=== PATIENT | male | born 1970 | race Two or more races ===

== ENCOUNTER 2022-10-21 15:59 | Emergency (ER) | payer OTHER ==
[~2022-10-21] VITALS: Ht 180.3 cm; Wt 111.1 kg
[2022-10-21 16:31] LABS: HEMATOCRIT 40.3 % (36.7-47.1); MEAN CORPUSCULAR HEMOGLOBIN 28.9 uug (23.8-33.4); MEAN CORPUSCULAR VOLUME 86.5 fL (73.0-96.2); PLATELET COUNT (AUTO) 225 K/uL (152-348)
--- NOTE | 2022-10-21 16:43 | NUR ---
Pt seen by . EKG performed. Pt being monitored. Safety measures in place. Will continue to monitor.
[2022-10-21 17:15] LABS: CARBON DIOXIDE 28 mmol/L (21-32); CHLORIDE 106 mmol/L (98-107); CREATININE 0.8 mg/dL (0.6-1.3); GLUCOSE 88 mg/dL (74-106); POTASSIUM 4.2 mmol/L (3.5-5.1); UREA NITROGEN, BLOOD 19 mg/dL (7-18)
[2022-10-21] MEDS ORDERED: ACETAMINOPHEN 325 MG TABLET PO ONE (17:15)
[2022-10-21] MEDS ORDERED: FAMOTIDINE. 20 MG/2 ML VIAL IV ONE ×2 (17:15)
[2022-10-21] MEDS ORDERED: MAG HYDROX/AL HYDROX/SIMETH 30 ML LIQUID UDC PO ONE (17:15)
[2022-10-21] MEDS ORDERED: ACETAMINOPHEN 325 MG TABLET ONE (17:15)
[2022-10-21] MEDS ORDERED: MAG HYDROX/AL HYDROX/SIMETH 30 ML LIQUID UDC ONE (17:23)
[2022-10-21 17:28] LABS: ALANINE AMINOTRANSFERASE 30 U/L (16-63); ALKALINE PHOSPHATASE 92 U/L (50-136); ASPARTATE AMINOTRANSFERASE 14 U/L (15-37); BILIRUBIN,DIRECT 0.2 mg/dL (0.0-0.2); TOTAL PROTEIN, SERUM 7.1 g/dL (6.4-8.2)
--- NOTE | 2022-10-21 18:22 | NUR ---
Pt currently in stable condition. Safety measures in place. Will continue to monitor.
[2022-10-21] MEDS ORDERED: ASPIRIN 81 MG TAB.CHEW PO ONE (18:45)
[2022-10-21] MEDS ORDERED: ASPIRIN 81 MG TAB.CHEW ONE (18:51)
--- NOTE | 2022-10-21 19:10 | NUR ---
Received report from GRACIA Parra.
--- NOTE | 2022-10-21 19:55 | NUR ---
Patient a/o x 4. NAD noted. Ambulatory with a steady gait. All belongings with patient. Patient discharged to home in stable condition. Written and verbal after care instructions given. Patient verbalizes understanding of instructions. Stressed follow up or return to ER for worsening s/s.
[2022-10-21 19:57] VITALS: BP 127/68
== END 2022-10-21 19:57 | disposition home or self-care (01) ==
LOC: ER 16:02
DX: R07.89 Other chest pain (principal)
CPT/HCPCS: 99285; 96374; 71045; 80076; 80048; 83880; 85025; 84484 ×2; 36415; 93005; J3490; A4663

== ENCOUNTER 2022-11-22 08:44 | Emergency (ER) | payer OTHER ==
[~2022-11-22] VITALS: Ht 180.3 cm; Wt 111.1 kg
[2022-11-22] MEDS ORDERED: LIDOCAINE VISCUS 2% 15 ML UDC MM ONE (09:00)
[2022-11-22] MEDS ORDERED: FAMOTIDINE. 20 MG/2 ML VIAL IV ONE ×2 (09:00→09:11)
[2022-11-22] MEDS ORDERED: MAG HYDROX/AL HYDROX/SIMETH 30 ML LIQUID UDC PO ONE (09:00)
[2022-11-22] MEDS ORDERED: IV NORMAL SALINE 1000 ML BAG IV ONE (09:00)
[2022-11-22] MEDS ORDERED: ONDA4TAB5 PO (09:04)
[2022-11-22] MEDS ORDERED: FAMO10TA41 PO (09:04)
[2022-11-22] MEDS ORDERED: LIDOCAINE VISCUS 2% 15 ML UDC ONE (09:10)
[2022-11-22] MEDS ORDERED: MAG HYDROX/AL HYDROX/SIMETH 30 ML LIQUID UDC ONE (09:12)
--- NOTE | 2022-11-22 09:15 | NUR ---
Pt seen by MD for Bedside Eval. Safety measures in place. Will continue to monitor.
--- NOTE | 2022-11-22 09:22 | NUR ---
Pt denied IV. Safety measures in place. Will continue to monitor.
[2022-11-22 09:33] LABS: MEAN CORPUSCULAR HEMOGLOBIN 29.1 uug (23.8-33.4); PLATELET COUNT (AUTO) 182 K/uL (152-348)
[2022-11-22 09:54] LABS: BILIRUBIN,DIRECT 0.2 mg/dL (0.0-0.2); BILIRUBIN,TOTAL 1.3 mg/dL (0.2-1.0); POTASSIUM 4.2 mmol/L (3.5-5.1); TOTAL PROTEIN, SERUM 6.7 g/dL (6.4-8.2)
--- NOTE | 2022-11-22 10:00 | NUR ---
UA sent to lab.
[2022-11-22] MEDS ORDERED: PANT20TA2 PO (10:02)
[2022-11-22] MEDS ORDERED: SIME80TA15 PO (10:02)
[2022-11-22 11:07] LABS: *BILIRUBIN,URIN NEGATIVE (NEGATIVE); *CLARITY,URINE CLEAR (CLEAR); *COLOR,URINE YELLOW (YELLOW); *KETONES,URINE NEGATIVE (NEGATIVE); *UROBILINOGEN,URINE 0.2 E.U./dl (NORMAL); LEUKOCYTE ESTERASE ,URINE NEGATIVE (NEGATIVE); NITRITE, URINE NEGATIVE (NEGATIVE); UGLUCOSE NEGATIVE (NEGATIVE)
[2022-11-22 11:12] LABS: *BLOOD, URINE TRACE (NEGATIVE)
[2022-11-22 12:31] VITALS: BP 132/87
--- NOTE | 2022-11-22 12:31 | NUR ---
Patient discharged to home in stable condition. Written and verbal after care instructions given. Patient verbalizes understanding of instructions. Gave patient copy of labs and ultrasound. Stressed follow up or return to ER for worsening s/s.
[2022-11-22 13:45] LABS: BACTERIA,URINE NONE SEEN /HPF (NONE SEEN); CALCIUM CARBONATE CRYSTALS,UR NONE SEEN /HPF (NONE SEEN); CALCIUM OXALATE CRYSTALS,UR NONE SEEN /HPF (NONE SEEN); CALCIUM PHOSPHATE CRYSTALS,UR NONE SEEN /HPF (NONE SEEN); COARSE GRANULAR CASTS,URINE NONE SEEN /LPF; CYSTINE CRYSTALS,URINE NONE SEEN /HPF (NONE SEEN); FATTY CASTS,URINE NONE SEEN /LPF (NONE SEEN); MUCUS,URINE FEW /LPF (0-FEW); RBC,URINE 0-3 /HPF (0-3); RED BLOOD CELL CASTS,URINE NONE SEEN /LPF (NONE SEEN); SPERM,URINE NONE SEEN /HPF (NONE SEEN); SQUAMOUS EPITHELIAL CELL,UR FEW /HPF (NONE SEEN); TRICHOMONAS,URINE NONE SEEN /HPF (NONE SEEN); TRIPLE PHOSPHATE CRYSTAL,UR NONE SEEN /HPF (NONE SEEN); TYROSINE CRYSTAL,URINE NONE SEEN /HPF (NONE SEEN); URIC ACID CRYSTALS,URINE NONE SEEN /HPF (NONE SEEN); URINE AMORPHOUS PHOSPHATES NONE SEEN /HPF; URINE AMORPHOUS URATE NONE SEEN /HPF; WAXY CASTS,URINE NONE SEEN /LPF (NONE SEEN); WBC,URINE 0-3 /HPF (0-3); YEAST,URINE NONE SEEN /HPF (NONE SEEN)
== END 2022-11-22 12:31 | disposition home or self-care (01) ==
LOC: ER 08:44
DX: R10.13 Epigastric pain (principal); R14.0 Abdominal distension (gaseous); K21.9 Gastro-esophageal reflux disease without esophagitis; Z79.899 Other long term (current) drug therapy
CPT/HCPCS: 99284; 76705; 80076; 80048; 81001; 83690; 85025; 36415; J7040; A4663; J3490